=== PATIENT | male | born 1995 | race African-American/Black ===

== ENCOUNTER 2020-09-26 04:35 | Emergency (ER) | payer OTHER ==
[~2020-09-26] VITALS: Ht 170.2 cm; Wt 90.9 kg
[2020-09-26 04:35] VITALS: BP 162/97
[~2020-09-26 04:35] MED LIST: Nicotine TD
== END 2020-09-26 06:01 | disposition left against medical advice (07) ==
LOC: ER 04:35
DX: K08.89 Other specified disorders of teeth and supporting structures (principal); Z53.21 Procedure and treatment not carried out due to patient leaving prior to being seen by health care provider

== ENCOUNTER 2021-02-25 01:01 | Emergency (ER) | payer OTHER | END 2021-02-25 01:09 | disposition left against medical advice (07) | LOC: ER 01:01 | DX: K08.89 Other specified disorders of teeth and supporting structures (principal); Z53.21 Procedure and treatment not carried out due to patient leaving prior to being seen by health care provider ==